=== PATIENT | male | born 1990 | race Caucasian/White ===

== ENCOUNTER 2023-08-01 13:03 | Outpatient (OUT) | payer OTHER, SELFPAY ==
--- NOTE | 2023-08-01 13:12 | MR_ITS ---
The [address] [address] Patient Name: MITCH MONTANO MRN: [id number] date: 1990 Sex: M Assigned Patient Location: MRI Current Patient Location: MRI Accession/Order Number: [id number] Exam Date: 08/01/2023 13:28 Report Date: 08/01/2023 23:27 At the request of: JOANA MAY Procedure: MR head/brain wo/w con EXAM: MR head/brain wo/w con HISTORY: Sensorineural hearing loss right ear H90.41 COMPARISON: None. TECHNIQUE: Multisequence MRI brain was performed with and without intravenous contrast. FINDINGS: There is no restricted diffusion to suggest acute infarct. There is no midline shift, mass effect, or abnormal extraaxial fluid collections. There are no abnormal parenchymal or leptomeningeal enhancement. The cortical sulci and ventricular system are within normal limits. The internal auditory canals and cerebellopontine angles are unremarkable, without masses or abnormal enhancement. The bilateral cranial nerves VII and VIII are unremarkable. No abnormality is seen involving the membranous labyrinth. There are a couple of less than 5 mm left frontal T2 hyperintense white matter lesions which are nonspecific. The major intracranial flow voids are visualized. The cerebellar tonsils are normal in position. The orbits demonstrate no suspicious enhancement or any focal lesions. The paranasal sinuses show no air-fluid level. The mastoid air cells are clear. The calvarium and extracranial soft tissues are unremarkable. MR/MR head/brain wo/w con IMPRESSION: No acute intracranial abnormality or abnormal intracranial enhancement. Clear internal auditory canals and cerebellopontine angles. A couple of nonspecific tiny T2 bright foci within the left frontal lobe. Differential considerations include migraine headaches, demyelination, vasculitis or Lyme disease for this age. Recommend clinical correlation. Electronically authenticated by: VICKI MORALES Date: 08/01/2023 23:27
== END 2023-08-01 13:04 | disposition home or self-care (01) ==
LOC: MRI 13:03
PROVIDERS: PCP Family Medicine; Visit Provider Otolaryngology
DX: H90.41 Sensorineural hearing loss, unilateral, right ear, with unrestricted hearing on the contralateral side (principal)
CPT/HCPCS: 70553; A9575